=== PATIENT | male | born 1980 | race Two or more races ===

== ENCOUNTER 2023-08-05 13:17 | Inpatient (IN) | payer OTHER ==
[2023-08-05 14:10] VITALS: BMI 28.1
[2023-08-05] MEDS ORDERED: POLYETHYLENE GLYCOL (HEALTHYLAX) 3350 17 GM PACKET PO PRN (18:35)
[2023-08-05] MEDS ORDERED: MAG HYDROX/AL HYDROX/SIMETH 30 ML UNIT-DOSE CUP PO PRN (18:35)
[2023-08-05] MEDS ORDERED: NALOXONE HCL 0.4 MG/ML VIAL IM PRN (18:35)
[2023-08-05] MEDS ORDERED: ACETAMINOPHEN 325 MG TABLET (FP) PO PRN (18:35)
[2023-08-05] MEDS ORDERED: ONDANSETRON *ODT* 4 MG TABLET SL PRN (18:35)
[2023-08-05] MEDS ORDERED: DICYCLOMINE HCL 10 MG CAPSULE PO PRN (18:35)
[2023-08-05] MEDS ORDERED: BENZOCAINE/MENTHOL (CHLORASEPTIC ) LOZENGE MM PRN (18:35)
[2023-08-05] MEDS ORDERED: NALOXONE HCL (KLOXXADO) 8 MG SPRAY NS PRN (18:35)
[2023-08-05] MEDS ORDERED: BENZONATATE 200 MG CAPSULE PO PRN (18:35)
[2023-08-05] MEDS ORDERED: IBUPROFEN 400 MG TABLET (FP) PO PRN (18:35)
[2023-08-05] MEDS ORDERED: guaiFENesin 600 MG TABLET.ER (FP) PO PRN (18:35)
[2023-08-05] MEDS ORDERED: BISMUTH SUBSALICYLATE 524 MG/30 ML PO PRN (18:35)
[2023-08-05] MEDS ORDERED: MAGNESIUM HYDROX 2400MG/30ML ORAL SUSPENSION 30 ML CUP PO PRN (18:35)
[2023-08-05] MEDS ORDERED: hydrOXYzine PAMOATE 25 MG CAPSULE (FP) PO PRN (18:35)
[2023-08-05] MEDS ORDERED: LOPERAMIDE HCL 2 MG CAPSULE PO PRN (18:35)
[2023-08-05] MEDS: THIAMINE HCL 100 MG TABLET (FP) PO SCH (22:38)
[2023-08-05] MEDS: MELATONIN 5 MG TABLETS PO SCH (22:38)
[2023-08-06] MEDS: PRENATAL VITAMINS W/ FOLIC ACID TABLET (FP) PO SCH (10:31)
[2023-08-06] MEDS ORDERED: diazePAM 5 MG TABLET PO PRN (10:49)
[2023-08-06] MEDS: diazePAM 5 MG TABLET PO SCH ×3 (11:25→22:14)
[2023-08-06 12:46] LABS: CHLORIDE 109 mmol/L (98-107); POTASSIUM 4.3 mmol/L (3.5-5.1); SODIUM 141 mmol/L (136-145)
[2023-08-06 12:48] LABS: BLOOD UREA NITROGEN 9.6 mg/dL (7-18); CALCIUM 8.2 mg/dL (8.5-10.1)
[2023-08-06 12:49] LABS: ALBUMIN 2.8 g/dl (3.4-5.0); ANION GAP 3 mmol/L (4-13); CO2 29 mmol/L (21-32); GLUCOSE,RANDOM 95 mg/dL (74-106)
[2023-08-06 12:51] LABS: SGPT/ALT 17 U/L (13-61)
[2023-08-06 12:52] LABS: CREATININE 0.7 mg/dL (0.55-1.3); SGOT/AST 10 U/L (15-37)
[2023-08-06 12:53] LABS: BILIRUBIN,TOTAL 0.2 mg/dL (0.2-1); TOT PROT 5.9 g/dl (6.4-8.2)
[2023-08-06 12:54] LABS: ALK PHOS 66 U/L (45-117)
[2023-08-06 13:00] LABS: HEMATOCRIT 40.7 % (35.4-49); HEMOGLOBIN 13.2 GM/dL (11.7-16.9); MCH 26.9 pg (25.7-33.7); MCHC 32.5 g/dl (32.0-35.9); MEAN CELL VOLUME 82.8 fl (80-96); PLATELET COUNT 252 10^3/uL (134-434); RBC 4.91 M/mm3 (4.00-5.60); RDW 16.1 % (11.9-15.9); WHITE BLOOD COUNT 4.8 K/mm3 (4.0-10.0)
[2023-08-06] MEDS: IBUPROFEN 600 MG TABLET (FP) PO PRN (17:50)
[2023-08-06] MEDS: MELATONIN 5 MG TABLETS PO SCH (22:14)
[2023-08-06] MEDS: THIAMINE HCL 100 MG TABLET (FP) PO SCH (22:14)
[2023-08-07] MEDS: diazePAM 5 MG TABLET PO SCH ×4 (06:00→22:07)
[2023-08-07] MEDS: PRENATAL VITAMINS W/ FOLIC ACID TABLET (FP) PO SCH (10:27)
[2023-08-07] MEDS: THIAMINE HCL 100 MG TABLET (FP) PO SCH (22:05)
[2023-08-07] MEDS: MELATONIN 5 MG TABLETS PO SCH (22:05)
[2023-08-07] MEDS: METHOCARBAMOL 500 MG TABLET PO PRN (22:07)
[2023-08-07] MEDS: IBUPROFEN 600 MG TABLET (FP) PO PRN (22:07)
[2023-08-08] MEDS: diazePAM 5 MG TABLET PO SCH ×3 (05:59→22:13)
[2023-08-08] MEDS: PRENATAL VITAMINS W/ FOLIC ACID TABLET (FP) PO SCH (10:20)
[2023-08-08] MEDS: IBUPROFEN 600 MG TABLET (FP) PO PRN (22:14)
[2023-08-08] MEDS: THIAMINE HCL 100 MG TABLET (FP) PO SCH (22:15)
[2023-08-08] MEDS: METHOCARBAMOL 500 MG TABLET PO PRN (22:15)
[2023-08-08] MEDS: MELATONIN 5 MG TABLETS PO SCH (22:15)
[2023-08-09] MEDS: diazePAM 5 MG TABLET PO SCH ×2 (05:53→17:38)
[2023-08-09] MEDS: IBUPROFEN 600 MG TABLET (FP) PO PRN ×2 (05:55→22:06)
[2023-08-09] MEDS: PRENATAL VITAMINS W/ FOLIC ACID TABLET (FP) PO SCH (10:27)
[2023-08-09] MEDS: THIAMINE HCL 100 MG TABLET (FP) PO SCH (22:05)
[2023-08-09] MEDS: MELATONIN 5 MG TABLETS PO SCH (22:05)
[2023-08-09] MEDS: METHOCARBAMOL 500 MG TABLET PO PRN (22:06)
[2023-08-10] MEDS ORDERED: diazePAM 5 MG TABLET PO ONE (06:00)
[2023-08-10 09:48] VITALS: BP 125/82; PULSE 97; RESP 20; TEMP 95.9
[2023-08-10] MEDS: PRENATAL VITAMINS W/ FOLIC ACID TABLET (FP) PO SCH (10:45)
== END 2023-08-10 13:14 | disposition other institution (70) | DRG 774 ==
LOC: YASAS 13:17 → Y3N 17:44
PROVIDERS: ADMIT Allergy & Immunology; ATTEND Surgery
PROC: HZ2ZZZZ Detoxification Services for Substance Abuse Treatment (ICD-10-PCS; principal; 2023-08-05)
DX: F10.230 Alcohol dependence with withdrawal, uncomplicated (principal); F14.20 Cocaine dependence, uncomplicated; F17.210 Nicotine dependence, cigarettes, uncomplicated; F19.280 Other psychoactive substance dependence with psychoactive substance-induced anxiety disorder; F43.10 Post-traumatic stress disorder, unspecified; F41.9 Anxiety disorder, unspecified
CPT/HCPCS: 36415; 80053; 80307; 85027; 86780; 87635

== ENCOUNTER 2023-08-10 13:43 | Inpatient (IN) | payer OTHER ==
[2023-08-10] MEDS ORDERED: POLYETHYLENE GLYCOL (HEALTHYLAX) 3350 17 GM PACKET PO PRN (16:00)
[2023-08-10] MEDS ORDERED: COLLOIDAL OATMEAL 1 BAR EACH TP PRN (16:00)
[2023-08-10] MEDS ORDERED: guaiFENesin 600 MG TABLET.ER (FP) PO PRN (16:00)
[2023-08-10] MEDS ORDERED: ACETAMINOPHEN 325 MG TABLET (FP) PO PRN (16:00)
[2023-08-10] MEDS ORDERED: AMMONIUM LACTATE 12% LOTION 225 GM BOTTLE TP PRN (16:00)
[2023-08-10] MEDS ORDERED: LOPERAMIDE HCL 2 MG CAPSULE PO PRN (16:00)
[2023-08-10] MEDS ORDERED: NALOXONE HCL 0.4 MG/ML VIAL IVPUSH PRN (16:00)
[2023-08-10] MEDS ORDERED: IBUPROFEN 600 MG TABLET (FP) PO PRN (16:00)
[2023-08-10] MEDS ORDERED: NICOTINE POLACRILEX 4 MG GUM BUC PRN (16:00)
[2023-08-10] MEDS ORDERED: NALOXONE HCL (KLOXXADO) 8 MG SPRAY NS PRN (16:00)
[2023-08-10] MEDS ORDERED: hydrOXYzine PAMOATE 25 MG CAPSULE (FP) PO PRN (16:00)
[2023-08-10] MEDS ORDERED: MAGNESIUM HYDROX 2400MG/30ML ORAL SUSPENSION 30 ML CUP PO PRN (16:00)
[2023-08-10] MEDS ORDERED: MAG HYDROX/AL HYDROX/SIMETH 30 ML UNIT-DOSE CUP PO PRN (16:00)
[2023-08-10] MEDS ORDERED: BENZONATATE 200 MG CAPSULE PO PRN (16:00)
[2023-08-10] MEDS ORDERED: IBUPROFEN 400 MG TABLET (FP) PO PRN (16:00)
[2023-08-10] MEDS ORDERED: NICOTINE 14 MG/24 HOURS TOPICAL PATCH TD PRN (16:00)
[2023-08-10] MEDS ORDERED: METHOCARBAMOL 500 MG TABLET PO PRN (16:00)
[2023-08-10] MEDS ORDERED: BENZOCAINE/MENTHOL (CHLORASEPTIC ) LOZENGE MM PRN (16:00)
[2023-08-10] MEDS ORDERED: THIAMINE HCL 100 MG TABLET (FP) PO SCH (22:00)
[2023-08-10] MEDS ORDERED: MELATONIN 5 MG TABLETS PO SCH (22:00)
[2023-08-11 06:29] VITALS: BP 113/71; PULSE 68; RESP 17; TEMP 97.1
[2023-08-11] MEDS ORDERED: PRENATAL VITAMINS W/ FOLIC ACID TABLET (FP) PO SCH (10:00)
== END 2023-08-11 13:08 | disposition left against medical advice (07) | DRG 770 ==
LOC: YASAS 13:43 → Y3W 13:45
PROVIDERS: ADMIT Allergy & Immunology; ATTEND Psychiatry & Neurology Pain Medicine
PROC: HZ2ZZZZ Detoxification Services for Substance Abuse Treatment (ICD-10-PCS; principal; 2023-08-10)
DX: F10.20 Alcohol dependence, uncomplicated (principal); F14.20 Cocaine dependence, uncomplicated; F17.210 Nicotine dependence, cigarettes, uncomplicated; F19.280 Other psychoactive substance dependence with psychoactive substance-induced anxiety disorder; F41.9 Anxiety disorder, unspecified; F43.10 Post-traumatic stress disorder, unspecified
CPT/HCPCS: 36415; 82140; 86803